=== PATIENT | male | born 1995 | race Caucasian/White ===

== ENCOUNTER 2017-05-03 16:35 | Emergency (ER) | payer OTHER ==
[~2017-05-03] VITALS: Ht 172.7 cm; Wt 113.4 kg
[2017-05-03 16:44] VITALS: BP 149/89
[2017-05-03] MEDS ORDERED: LURA60TA PO (16:54)
[2017-05-03] MEDS ORDERED: TRAZ-289 PO (16:54)
[2017-05-03] MEDS ORDERED: ORE25 PO (16:54)
[2017-05-03] MEDS ORDERED: ASPI81CT PO (16:54)
[2017-05-03] MEDS ORDERED: NACL 0.9% 1,000 ML IV ONE (17:20)
--- NOTE | 2017-05-03 17:20 | NUR ---
Pt placed in bed 7.
[2017-05-03 17:39] LABS: BASOPHILS # (AUTO) 0.2 K/uL (0.00-0.22); BASOPHILS % (AUTO) 1.3 % (0.0-2.0); EOSINOPHILS # (AUTO) 0.2 K/uL (0-0.4); EOSINOPHILS % (AUTO) 1.4 % (0.0-4.0); LYMPHOCYTES # (AUTO) 2.4 K/uL (2.0-11.5); LYMPHOCYTES % (AUTO) 18.9 % (20.5-51.1); MEAN CORPUSCULAR HEMOGLOBIN 28 pg (27-31); MEAN CORPUSCULAR HGB CONC 33 g/dL (33-37); MEAN CORPUSCULAR VOLUME 85 fL (80-94); MONOCYTES # (AUTO) 0.7 K/uL (0.8-1.0); MONOCYTES % (AUTO) 5.5 % (1.7-9.3); NEUTROPHILS # (AUTO) 9.1 K/uL (1.8-7.7); NEUTROPHILS % (AUTO) 72.9 % (42.2-75.2); PLATELET COUNT (AUTO) 385 K/uL (140-450); RED BLOOD CELL COUNT(AUTO) 5.41 MIL/uL (4.20-6.10); RED CELL DISTRIBUTION WIDTH 12.9 % (11.6-13.7); WHITE BLOOD COUNT (AUTO) 12.6 K/uL (4.8-10.8)
[2017-05-03 17:52] LABS: ANION GAP 11.5 (8-16); CALCIUM 9.9 mg/dL (8.5-10.1); CARBON DIOXIDE 28.8 mmol/L (21-32); CHLORIDE 101 mmol/L (98-107); CREATININE 0.7 mg/dL (0.7-1.3); GFR ARICAN-AMERICAN 183 mL/min (>90); GFR NON ARICAN-AMERICAN 151 mL/min (>90); GLUCOSE 106 mg/dL (74-106); POTASSIUM 3.3 mmol/L (3.5-5.1); SODIUM SERUM 138 mmol/L (136-145); UREA NITROGEN, BLOOD 13 mg/dL (7-18)
[2017-05-03 17:54] LABS: AMPHETAMINE, URINE NEG. ng/ml (NEG <=1000); BARBITURATE, URINE NEG. ng/ml (NEG <=200); BENZODIAZEPINE, URINE NEG. ng/mL (NEG <=200); CANNABINOID, URINE POS. ng/mL (NEG <=50); COCAINE, URINE NEG. ng/mL (NEG <=300); OPIATE, URINE NEG. ng/mL (NEG <=2000); PHENCYCLIDINE SCREEN,URINE NEG. ng/mL (NEG <=25)
--- NOTE | 2017-05-03 17:54 | NUR ---
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 Pt states "I haven't been feeling well." Pt reports hearing voices and states "They make me crazy. I get really angry." Pt denies thoughts of hurting himself or others. Pt states he has been "feel sick for 2 months." Pt states he was at [facility] approximately 6 months ago on a 5150 for "I said something and my mom heard me while I was high and yeah." Denies pain. Denies N/V/D. Denies SOB or chest pain. AOX4, clear speech. Pt placed in a gown, all belongings set aside in a belongings bag in a chair at bedside. Pt placed on coil strapper, pulse oximetry and blood pressure monitoring. VSS.
--- NOTE | 2017-05-03 17:55 | NUR ---
Patient being evaluated by Dr. Olea at bedside.
[2017-05-03 18:01] LABS: ALANINE AMINOTRANSFERASE 53 U/L (16-63); ALBUMIN 4.2 g/dL (3.4-5.0); ALCOHOL, BLOOD < 3 mg/dL (<3); ALKALINE PHOSPHATASE 127 U/L (46-116); ASPARTATE AMINOTRANSFERASE 30 U/L (15-37); TOTAL BILIRUBIN 0.3 mg/dL (0.0-1.0); TOTAL PROTEIN, SERUM 9.5 g/dL (6.4-8.2)
[2017-05-03 18:02] LABS: ACETAMINOPHEN < 0.5 ug/ml (10-30); SALICYLATE < 2.8 mg/dL (2.8-20.0)
--- NOTE | 2017-05-03 18:30 | NUR ---
Patient appears to be resting comfortably in bed. VSS. Lights dimmed. Pt in position of comfort.
--- NOTE | 2017-05-03 18:41 | NUR ---
IV removed, catheter intact and site benign. Applied folded 4x4 gauze and tape to stop bleeding.
--- NOTE | 2017-05-03 18:41 | NUR ---
Copies of lab results given to patient for follow up. Pt advised to follow up with PMD.
[2017-05-03 18:45] VITALS: BP 137/80
--- NOTE | 2017-05-03 18:45 | NUR ---
Patient discharged with v/s stable. Written and verbal after care instructions given and explained. Patient verbalized understanding. Ambulatory with steady gait. All questions addressed prior to discharge. Advised to follow up with PMD.
== END 2017-05-03 18:45 | disposition home or self-care (01) ==
LOC: MED 16:35
DX: R44.0 Auditory hallucinations (principal); R03.0 Elevated blood-pressure reading, without diagnosis of hypertension; I10 Essential (primary) hypertension; Z79.899 Other long term (current) drug therapy
CPT/HCPCS: 36415; 80053; 80305; 85025; 93005; 96360; 99285; G0480; G0482; J7030

== ENCOUNTER 2017-05-03 20:58 | Emergency (ER) | payer OTHER ==
[~2017-05-03] VITALS: Ht 172.7 cm; Wt 113.4 kg
[~2017-05-03 20:58] MED LIST: ASPI81CT PO; LURA60TA PO; ORE25 PO; TRAZ-289 PO
[2017-05-03 21:06] VITALS: BP 150/79
--- NOTE | 2017-05-03 21:51 | NUR ---
PT TAKEN TO [facility]
--- NOTE | 2017-05-03 21:58 | NUR ---
Dr. Tapia evaluating patient
--- NOTE | 2017-05-03 22:05 | NUR ---
PT MOVED TO BED 6
[2017-05-03 22:23] LABS: BASOPHILS # (AUTO) 0.4 K/uL (0.00-0.22); BASOPHILS % (AUTO) 2.8 % (0.0-2.0); EOSINOPHILS # (AUTO) 0.2 K/uL (0-0.4); EOSINOPHILS % (AUTO) 1.6 % (0.0-4.0); HEMATOCRIT 44.1 % (36-52); HEMOGLOBIN 14.8 g/dL (12.0-18.0); LYMPHOCYTES # (AUTO) 3.5 K/uL (2.0-11.5); LYMPHOCYTES % (AUTO) 24.5 % (20.5-51.1); MEAN CORPUSCULAR HEMOGLOBIN 28 pg (27-31); MEAN CORPUSCULAR HGB CONC 33 g/dL (33-37); MEAN CORPUSCULAR VOLUME 84 fL (80-94); MONOCYTES # (AUTO) 0.9 K/uL (0.8-1.0); MONOCYTES % (AUTO) 6.7 % (1.7-9.3); NEUTROPHILS # (AUTO) 9.2 K/uL (1.8-7.7); NEUTROPHILS % (AUTO) 64.4 % (42.2-75.2); PLATELET COUNT (AUTO) 385 K/uL (140-450); RED BLOOD CELL COUNT(AUTO) 5.26 MIL/uL (4.20-6.10); RED CELL DISTRIBUTION WIDTH 12.5 % (11.6-13.7); WHITE BLOOD COUNT (AUTO) 14.2 K/uL (4.8-10.8)
[2017-05-03] MEDS: NACL 0.9% 1,000 ML IV ONE (22:23)
--- NOTE | 2017-05-03 22:24 | NUR ---
21/M c/o "not feeling well." Pt was recently discharged from here today. Pt returned stating "I don't feel any better." AOX4, ambulates with steady gait. Denies pain at this time. Denies N/V/D. Denies fever or chills. VSS. No distress noted. Pt in a gown, placed on playground monitor, pulse oximetry and blood pressure monitoring.
[2017-05-03 22:32] LABS: ANION GAP 13.6 (8-16); CALCIUM 9.5 mg/dL (8.5-10.1); CARBON DIOXIDE 26.8 mmol/L (21-32); POTASSIUM 3.4 mmol/L (3.5-5.1)
[2017-05-03 22:33] LABS: CREATININE 0.7 mg/dL (0.7-1.3)
[2017-05-03 22:35] LABS: APPEARANCE,URINE SL CLOUDY (CLEAR); BILIRUBIN,URINE NEGATIVE (NEGATIVE); BLOOD, URINE TRACE-I (NEGATIVE); COLOR,URINE YELLOW (YELLOW); LEUKOCYTE ESTERASE ,URINE NEGATIVE (NEGATIVE); NITRITE, URINE NEGATIVE (NEGATIVE); PH,URINE 5.5 (5.0-9.0); PROTEIN,URINE NEGATIVE (NEGATIVE); UGLUCOSE NEGATIVE (NEGATIVE); UROBILINOGEN,URINE 0.2 EU/dL (0.2 - 1)
[2017-05-03 22:39] LABS: BACTERIA,URINE None Seen /HPF (None Seen); MUCUS,URINE 4+ /LPF (None Seen); RBC,URINE 0-5 (RARE) /HPF (0-5); SQUAMOUS EPITHELIAL CELL,UR 0-3 (FEW) /LPF (0-3 (FEW)); WBC,URINE 0-5 (RARE) /HPF (0-5)
[2017-05-03 22:43] LABS: TOTAL BILIRUBIN 0.3 mg/dL (0.0-1.0)
[2017-05-03 22:44] LABS: ALBUMIN 4.1 g/dL (3.4-5.0); THYROID STIMULATING HORMONE 1.51 uIU/mL (0.34-3.74); TOTAL PROTEIN, SERUM 9.2 g/dL (6.4-8.2)
--- NOTE | 2017-05-03 22:47 | NUR ---
Patient appears to be resting comfortably in bed. VSS.
--- NOTE | 2017-05-03 23:46 | NUR ---
IV removed, catheter intact and site benign. Applied folded 4x4 gauze and tape to stop bleeding.
--- NOTE | 2017-05-03 23:50 | NUR ---
Pt states "I want to stay in the hospital. I don't want to go home." Pt advised the doctor would come speak with patient. Dr. Tapia made aware.
[2017-05-04 00:15] VITALS: BP 115/63
== END 2017-05-04 00:15 | disposition home or self-care (01) ==
LOC: MED 20:58
DX: R53.1 Weakness (principal); I10 Essential (primary) hypertension; Z79.899 Other long term (current) drug therapy; Z79.82 Long term (current) use of aspirin
CPT/HCPCS: 36415; 80053; 81001; 84443; 85025; 99284; J7030